=== PATIENT | female | born 1940 | race Caucasian/White ===

== ENCOUNTER 2017-10-05 16:33 | Inpatient (IN) | payer BC, MEDICARE ==
[~2017-10-05] VITALS: Ht 171.4 cm; Wt 155.0 kg
[2017-10-05] MEDS ORDERED: ALBUTEROL/IPRATROPIUM 2.5MG/0.5MG, 3 ML ONE (16:58)
[2017-10-05] MEDS ORDERED: SODIUM CHLORIDE FLUSH 10ML SYR IVF ONE (17:00)
[2017-10-05 17:19] LABS: BASOPHILS # (AUTO) 0.02 x10^3/uL (0-0.1); BASOPHILS % (AUTO) 0 % (0-1); EOSINOPHILS # (AUTO) 0.03 x10^3/uL (0-0.4); EOSINOPHILS % (AUTO) 1 % (1-7); LYMPHOCYTES # (AUTO) 1.52 x10^3/uL (1-3.4); LYMPHOCYTES % (AUTO) 27 % (22-44); MD NO; MEAN CORPUSCULAR HEMOGLOBIN 33.8 pg (27.0-34.8); MEAN CORPUSCULAR HGB CONC 32.4 g/dL (32.4-35.8); MEAN CORPUSCULAR VOLUME 104.4 fL (80-100); MEAN PLATELET VOLUME 7.6 fL (7.4-10.4); MONOCYTES % (AUTO) 14 % (2-9); NEUTROPHILS # (AUTO) 3.28 x10^3/uL (1.8-6.8); NEUTROPHILS % (AUTO) 58 % (42-75); PLATELET COUNT 198 x10^3/uL (130-400); RED BLOOD COUNT 3.36 x10^6/uL (3.82-5.3); RED CELL DISTRIBUTION WIDTH 18.1 % (9.6-15.2)
[2017-10-05 17:25] LABS: ALANINE AMINOTRANSFERASE 15 U/L (12-78); ALBUMIN 3.2 g/dL (3.4-5.0); ANION GAP 6 mmol/L (5-15); CALCIUM 9.4 mg/dL (8.5-10.1); CHLORIDE 99 mmol/L (98-107)
[2017-10-05 17:30] LABS: ALKALINE PHOSPHATASE 173 U/L (45-117); BILIRUBIN,TOTAL 1.4 mg/dL (0.2-1.0); CREATININE 0.99 mg/dL (0.55-1.02); TOTAL PROTEIN 7.2 g/dL (6.4-8.2); TROPONIN I 0.039 ng/mL (0.000-0.045)
[2017-10-05 17:33] LABS: D-DIMER 1.48 ug/mlFEU (0.00-0.52); INTERNATIONAL NORMALIZED RATIO 1.06 (0.93-1.1); PROTHROMBIN TIME 10.9 Seconds (9.6-11.5)
[2017-10-05] MEDS ORDERED: NITROGLYCERIN OINT 2%, 1GM TP ONE ×2 (18:00→18:18)
[2017-10-05] MEDS ORDERED: FUROSEMIDE 40 MG/4 ML IVPush ONE (18:00)
[2017-10-05] MEDS ORDERED: FUROSEMIDE 40 MG/4 ML ONE (18:18)
[2017-10-05] MEDS ORDERED: THIA100T67 PO (19:16)
[2017-10-05] MEDS ORDERED: FLUT1AER INH (19:16)
[2017-10-05] MEDS ORDERED: methotrexate (19:16)
[2017-10-05] MEDS ORDERED: AMLO5TAB4 PO (19:16)
[2017-10-05] MEDS ORDERED: OMEP-110 PO (19:16)
[2017-10-05] MEDS ORDERED: proventil (19:16)
[2017-10-05] MEDS ORDERED: FOLI-17 PO (19:16)
[2017-10-05] MEDS ORDERED: ETOD500T2 PO (19:16)
[2017-10-05] MEDS ORDERED: ATOR80TA PO (19:16)
[2017-10-05] MEDS ORDERED: THYR90TA12 PO (19:16)
[2017-10-05] MEDS ORDERED: DULO60CA7 PO (19:16)
[2017-10-05] MEDS ORDERED: ALLO100T30 PO (19:16)
[2017-10-05] MEDS ORDERED: MONT10TA6 PO (19:16)
[2017-10-05] MEDS ORDERED: ONDANSETRON 2MG/ML, 2ML IVPush PRN (19:30)
[2017-10-05] MEDS ORDERED: BISACODYL 10 MG SUPP PR PRN (19:30)
[2017-10-05] MEDS ORDERED: POLYETHYLENE GLYCOL 17 GM PACKET PO PRN (19:30)
[2017-10-05] MEDS ORDERED: OMNIPAQUE 350 MG/ML, 100ML BOTTLE ONE (20:38)
[2017-10-05 21:35] VITALS: BP 128/74
[2017-10-05] MEDS ORDERED: ALBUTEROL SULFATE 2.5 MG/3 ML NPPB PRN (22:00)
[2017-10-05] MEDS ORDERED: HEPARIN 5,000 UNITS/ML, 1ML SQ SCH (22:00)
[2017-10-05] MEDS ORDERED: ETODOLAC 200 MG CAPSULE PO SCH (22:30)
[2017-10-05 22:40] VITALS: BP 128/73
[2017-10-05] MEDS: SODIUM CHLORIDE FLUSH 10ML SYR IVF SCH (22:48)
[2017-10-05] MEDS: ATORVASTATIN 80 MG TABLET PO SCH (22:48)
[2017-10-05] MEDS: LISINOPRIL 10 MG TABLET PO SCH (22:49)
[2017-10-06 00:33] VITALS: BP 132/72
[2017-10-06] MEDS ORDERED: HEPARIN 5,000 UNITS/ML, 1ML IV PRN (01:30)
[2017-10-06] MEDS ORDERED: HEPARIN 5,000 UNITS/ML, 1ML IV ONE (01:30)
[2017-10-06] MEDS ORDERED: HEPARIN 25,000 UNITS/500ML PMX 500 ML IV PRN (01:30)
[2017-10-06 02:11] LABS: BASOPHILS # (AUTO) 0.02 x10^3/uL (0-0.1); BASOPHILS % (AUTO) 0 % (0-1); EOSINOPHILS # (AUTO) 0.03 x10^3/uL (0-0.4); EOSINOPHILS % (AUTO) 1 % (1-7); LYMPHOCYTES # (AUTO) 1.59 x10^3/uL (1-3.4); LYMPHOCYTES % (AUTO) 29 % (22-44); MD NO; MEAN CORPUSCULAR HEMOGLOBIN 33.7 pg (27.0-34.8); MEAN CORPUSCULAR HGB CONC 32.1 g/dL (32.4-35.8); MEAN CORPUSCULAR VOLUME 105.2 fL (80-100); MEAN PLATELET VOLUME 7.3 fL (7.4-10.4); MONOCYTES # (AUTO) 0.73 x10^3/uL (0.2-0.8); MONOCYTES % (AUTO) 14 % (2-9); NEUTROPHILS # (AUTO) 3.05 x10^3/uL (1.8-6.8); NEUTROPHILS % (AUTO) 56 % (42-75); PLATELET COUNT 188 x10^3/uL (130-400); RED BLOOD COUNT 3.18 x10^6/uL (3.82-5.3); RED CELL DISTRIBUTION WIDTH 18.8 % (9.6-15.2)
[2017-10-06 02:25] LABS: ALANINE AMINOTRANSFERASE 14 U/L (12-78); ANION GAP 5 mmol/L (5-15); CALCIUM 9.4 mg/dL (8.5-10.1); CHLORIDE 101 mmol/L (98-107); CREATININE 0.99 mg/dL (0.55-1.02)
[2017-10-06 02:27] LABS: ALKALINE PHOSPHATASE 156 U/L (45-117); BILIRUBIN,TOTAL 1.1 mg/dL (0.2-1.0); TOTAL PROTEIN 6.7 g/dL (6.4-8.2)
[2017-10-06 02:57] LABS: FREE T4 (FREE THYROXINE) 1.03 ng/dL (0.76-1.46); THYROID STIMULATING HORMONE 2.68 mIU/L (0.358-3.740)
[2017-10-06] MEDS ORDERED: MAGNESIUM SULFATE PMX 2GM/50ML 50 ML IV ONE (03:30)
[2017-10-06] MEDS: ALBUTEROL SULFATE 2.5 MG/3 ML NPPB SCH ×4 (06:55→19:56)
[2017-10-06] MEDS: FUROSEMIDE 40 MG/4 ML IV SCH ×2 (08:47→17:55)
[2017-10-06] MEDS: SODIUM CHLORIDE FLUSH 10ML SYR IVF SCH ×2 (08:47→20:39)
[2017-10-06] MEDS: OMEPRAZOLE 20 MG CAPSULE.DR PO SCH (08:48)
[2017-10-06] MEDS: THIAMINE 100MG TABLET PO SCH (08:48)
[2017-10-06] MEDS: ALLOPURINOL 300 MG TABLET PO SCH (08:48)
[2017-10-06] MEDS: LISINOPRIL 10 MG TABLET PO SCH ×2 (08:48→20:39)
[2017-10-06] MEDS: FOLIC ACID 1 MG TABLET PO SCH (08:48)
[2017-10-06] MEDS: SENNA/DOCUSATE TABLET PO SCH (08:48)
[2017-10-06 08:59] VITALS: BP 142/81
[2017-10-06] MEDS ORDERED: THYROID PORK HOMEMEDPO SCH (09:00)
[2017-10-06] MEDS ORDERED: DULOXETINE HCL 90 MG PO SCH (09:00)
[2017-10-06] MEDS: FLUTICASONE/VILANTEROL 100-25MCG/INH INH SCH (10:30)
[2017-10-06] MEDS: methylPREDNISolone SOD SUCC 125 MG/2 ML IVPush SCH ×2 (12:11→17:57)
[2017-10-06 13:53] VITALS: BP 154/89
[2017-10-06] MEDS: HEPARIN 5,000 UNITS/ML, 1ML SQ SCH (15:19)
[2017-10-06] MEDS: DULOXETINE 30 MG CAPSULE.DR PO SCH (17:55)
[2017-10-06] MEDS: POTASSIUM CHLORIDE 20 MEQ PACKET PO SCH (17:57)
[2017-10-06 19:18] VITALS: BP 136/79
[2017-10-06] MEDS: ATORVASTATIN 80 MG TABLET PO SCH (20:39)
[2017-10-06] MEDS: MONTELUKAST 10 MG TABLET PO SCH (20:39)
[2017-10-07] MEDS: HEPARIN 5,000 UNITS/ML, 1ML SQ SCH ×4 (00:24→22:51)
[2017-10-07] MEDS: methylPREDNISolone SOD SUCC 125 MG/2 ML IVPush SCH ×4 (00:24→18:02)
[2017-10-07 02:12] VITALS: BP_SYST 112; BP_SYST 120; BP_DIAS 63; BP_DIAS 76
[2017-10-07 05:25] LABS: CHLORIDE 97 mmol/L (98-107)
[2017-10-07 05:26] LABS: MEAN CORPUSCULAR HEMOGLOBIN 33.8 pg (27.0-34.8); MEAN CORPUSCULAR VOLUME 105.4 fL (80-100); PLATELET COUNT 187 x10^3/uL (130-400); RED BLOOD COUNT 3.34 x10^6/uL (3.82-5.3); RED CELL DISTRIBUTION WIDTH 18.2 % (9.6-15.2)
[2017-10-07 05:33] LABS: ALANINE AMINOTRANSFERASE 16 U/L (12-78); ALBUMIN 3.2 g/dL (3.4-5.0); ALKALINE PHOSPHATASE 165 U/L (45-117); ANION GAP 7 mmol/L (5-15); BILIRUBIN,TOTAL 0.7 mg/dL (0.2-1.0); CALCIUM 9.5 mg/dL (8.5-10.1); CREATININE 1.23 mg/dL (0.55-1.02); TOTAL PROTEIN 7.6 g/dL (6.4-8.2)
[2017-10-07 06:06] LABS: MD YES
[2017-10-07 06:11] LABS: BAND#(MANUAL) 0.03 x10^3/uL; BANDS%(MANUAL) 1 % (0-7); LYMPH#(MANUAL) 0.38 x10^3/uL (1-3.4); LYMPHS% (MANUAL) 15 % (22-44); MONOS#(MANUAL) 0.08 x10^3/uL (0.3-2.7); MONOS% (MANUAL) 3 % (2-9); SEG#(MANUAL) 2.03 x10^3/uL (1.8-6.8); SEGS% (MANUAL) 81 % (42-75)
[2017-10-07 06:12] LABS: ANISOCYTOSIS 1+; OVALOCYTES 1+
[2017-10-07 06:13] LABS: <PLATELET ESTIMATE> ADEQUATE; <PLT MORPHOLOGY> NORMAL PLT MORPH; STOMATOCYTES 1+
[2017-10-07] MEDS: ALBUTEROL SULFATE 2.5 MG/3 ML NPPB SCH ×4 (07:00→21:20)
[2017-10-07 07:58] VITALS: BP_SYST 168; BP_SYST 94; BP_DIAS 51; BP_DIAS 89
[2017-10-07] MEDS: FUROSEMIDE 40 MG/4 ML IV SCH ×2 (08:27→16:34)
[2017-10-07] MEDS: SODIUM CHLORIDE FLUSH 10ML SYR IVF SCH ×2 (08:28→20:46)
[2017-10-07] MEDS: FLUTICASONE/VILANTEROL 100-25MCG/INH INH SCH (08:30)
[2017-10-07] MEDS: THIAMINE 100MG TABLET PO SCH (08:53)
[2017-10-07] MEDS: ALLOPURINOL 300 MG TABLET PO SCH (08:53)
[2017-10-07] MEDS: FOLIC ACID 1 MG TABLET PO SCH (08:54)
[2017-10-07] MEDS: DULOXETINE 30 MG CAPSULE.DR PO SCH (08:54)
[2017-10-07] MEDS: OMEPRAZOLE 20 MG CAPSULE.DR PO SCH (08:54)
[2017-10-07] MEDS: LISINOPRIL 10 MG TABLET PO SCH ×2 (08:54→20:46)
[2017-10-07] MEDS: POTASSIUM CHLORIDE 20 MEQ PACKET PO SCH ×2 (08:54→16:35)
[2017-10-07] MEDS: SENNA/DOCUSATE TABLET PO SCH (08:54)
[2017-10-07] MEDS: LEVOTHYROXINE 100 MCG TABLET PO SCH (09:17)
[2017-10-07 12:47] VITALS: BP 133/73
[2017-10-07 19:16] VITALS: BP 126/76
[2017-10-07] MEDS: ATORVASTATIN 80 MG TABLET PO SCH (20:46)
[2017-10-07] MEDS: MONTELUKAST 10 MG TABLET PO SCH (20:47)
[2017-10-08] MEDS: methylPREDNISolone SOD SUCC 125 MG/2 ML IVPush SCH ×4 (00:35→21:55)
[2017-10-08] MEDS ORDERED: QUETIAPINE 25MG TABLET PO SCH (02:30)
[2017-10-08] MEDS ORDERED: HALOPERIDOL 5 MG/ML ONE (02:36)
[2017-10-08] MEDS: HALOPERIDOL 5 MG/ML IM PRN ×3 (02:40→03:56)
[2017-10-08 03:54] VITALS: BP_SYST 135; BP_SYST 163; BP_DIAS 76; BP_DIAS 85
[2017-10-08] MEDS: LEVOTHYROXINE 100 MCG TABLET PO SCH (05:34)
[2017-10-08] MEDS: HEPARIN 5,000 UNITS/ML, 1ML SQ SCH ×3 (05:35→23:30)
[2017-10-08 06:59] VITALS: BP 153/95
[2017-10-08] MEDS: ALBUTEROL SULFATE 2.5 MG/3 ML NPPB SCH ×4 (07:00→20:09)
[2017-10-08 08:18] LABS: MEAN CORPUSCULAR HEMOGLOBIN 32.5 pg (27.0-34.8); MEAN CORPUSCULAR HGB CONC 31.2 g/dL (32.4-35.8); MEAN CORPUSCULAR VOLUME 104.3 fL (80-100); MEAN PLATELET VOLUME 7.7 fL (7.4-10.4); PLATELET COUNT 196 x10^3/uL (130-400); RED BLOOD COUNT 3.48 x10^6/uL (3.82-5.3)
[2017-10-08 08:26] LABS: ANION GAP 3 mmol/L (5-15); CALCIUM 10.2 mg/dL (8.5-10.1); CHLORIDE 98 mmol/L (98-107); CREATININE 1.23 mg/dL (0.55-1.02)
[2017-10-08 08:40] LABS: BASOPHILS % (AUTO) 0 % (0-1); EOSINOPHILS % (AUTO) 0 % (1-7); LYMPHOCYTES # (AUTO) 0.48 x10^3/uL (1-3.4); LYMPHOCYTES % (AUTO) 10 % (22-44); MD SCAN; MONOCYTES # (AUTO) 0.15 x10^3/uL (0.2-0.8); MONOCYTES % (AUTO) 3 % (2-9); NEUTROPHILS # (AUTO) 4.23 x10^3/uL (1.8-6.8); NEUTROPHILS % (AUTO) 87 % (42-75)
[2017-10-08] MEDS: SENNA/DOCUSATE TABLET PO SCH (09:00)
[2017-10-08] MEDS: FUROSEMIDE 40 MG/4 ML IV SCH ×2 (09:25→18:01)
[2017-10-08] MEDS: POTASSIUM CHLORIDE 20 MEQ PACKET PO SCH ×2 (09:31→18:01)
[2017-10-08] MEDS: SODIUM CHLORIDE FLUSH 10ML SYR IVF SCH ×2 (09:31→21:55)
[2017-10-08] MEDS: LISINOPRIL 10 MG TABLET PO SCH ×2 (09:45→21:56)
[2017-10-08] MEDS: OMEPRAZOLE 20 MG CAPSULE.DR PO SCH (09:45)
[2017-10-08] MEDS: ALLOPURINOL 300 MG TABLET PO SCH (09:45)
[2017-10-08] MEDS: FOLIC ACID 1 MG TABLET PO SCH (09:45)
[2017-10-08] MEDS: THIAMINE 100MG TABLET PO SCH (09:45)
[2017-10-08] MEDS: DULOXETINE 30 MG CAPSULE.DR PO SCH (09:45)
[2017-10-08] MEDS: FLUTICASONE/VILANTEROL 100-25MCG/INH INH SCH (09:45)
[2017-10-08 14:56] VITALS: BP 121/76
[2017-10-08 19:07] VITALS: BP 127/88
[2017-10-08] MEDS: ATORVASTATIN 80 MG TABLET PO SCH (21:55)
[2017-10-08] MEDS: MONTELUKAST 10 MG TABLET PO SCH (21:55)
[2017-10-09] MEDS ORDERED: AMIODARONE 150 MG in DEXTROSE 5% 100 ML IV ONE (00:30)
[2017-10-09] MEDS ORDERED: VERAPAMIL 2.5 MG/ML, 2ML IVPush PRN (00:30)
[2017-10-09] MEDS ORDERED: FILTER 0.22 MICRON IV PRN (01:00)
[2017-10-09 01:15] VITALS: BP 124/64
[2017-10-09] MEDS: AMIODARONE 900 MG in DEXTROSE 5% 482 ML IV PRN (01:19)
[2017-10-09 01:52] VITALS: BP 147/66
[2017-10-09] MEDS: methylPREDNISolone SOD SUCC 125 MG/2 ML IVPush SCH ×4 (03:40→21:34)
[2017-10-09 03:46] LABS: BASOPHILS % (AUTO) 0 % (0-1); EOSINOPHILS % (AUTO) 0 % (1-7); LYMPHOCYTES # (AUTO) 0.34 x10^3/uL (1-3.4); LYMPHOCYTES % (AUTO) 7 % (22-44); MD NO; MEAN CORPUSCULAR HEMOGLOBIN 33.3 pg (27.0-34.8); MEAN CORPUSCULAR HGB CONC 31.6 g/dL (32.4-35.8); MEAN CORPUSCULAR VOLUME 105.2 fL (80-100); MEAN PLATELET VOLUME 7.7 fL (7.4-10.4); MONOCYTES # (AUTO) 0.34 x10^3/uL (0.2-0.8); MONOCYTES % (AUTO) 7 % (2-9); NEUTROPHILS # (AUTO) 4.05 x10^3/uL (1.8-6.8); NEUTROPHILS % (AUTO) 86 % (42-75); PLATELET COUNT 191 x10^3/uL (130-400); RED BLOOD COUNT 3.43 x10^6/uL (3.82-5.3); RED CELL DISTRIBUTION WIDTH 18.6 % (9.6-15.2)
[2017-10-09 03:57] LABS: CHLORIDE 96 mmol/L (98-107)
[2017-10-09 04:03] LABS: ALANINE AMINOTRANSFERASE 16 U/L (12-78); ALBUMIN 3.3 g/dL (3.4-5.0); ALKALINE PHOSPHATASE 122 U/L (45-117); ANION GAP 5 mmol/L (5-15); BILIRUBIN,TOTAL 0.6 mg/dL (0.2-1.0); CREATININE 1.27 mg/dL (0.55-1.02); TOTAL PROTEIN 7.2 g/dL (6.4-8.2)
[2017-10-09] MEDS: HEPARIN 5,000 UNITS/ML, 1ML SQ SCH ×3 (06:03→21:34)
[2017-10-09] MEDS: LEVOTHYROXINE 100 MCG TABLET PO SCH (06:03)
[2017-10-09 07:24] VITALS: BP 150/85
[2017-10-09] MEDS: ALBUTEROL SULFATE 2.5 MG/3 ML NPPB SCH ×4 (07:49→18:55)
[2017-10-09] MEDS: FLUTICASONE/VILANTEROL 100-25MCG/INH INH SCH (08:35)
[2017-10-09] MEDS: FOLIC ACID 1 MG TABLET PO SCH (08:35)
[2017-10-09] MEDS: LISINOPRIL 10 MG TABLET PO SCH ×2 (08:35→21:34)
[2017-10-09] MEDS: FUROSEMIDE 40 MG/4 ML IV SCH ×2 (08:35→16:07)
[2017-10-09] MEDS: POTASSIUM CHLORIDE 20 MEQ PACKET PO SCH ×2 (08:35→16:07)
[2017-10-09] MEDS: DULOXETINE 30 MG CAPSULE.DR PO SCH (08:35)
[2017-10-09] MEDS: OMEPRAZOLE 20 MG CAPSULE.DR PO SCH (08:35)
[2017-10-09] MEDS: SENNA/DOCUSATE TABLET PO SCH (08:35)
[2017-10-09] MEDS: ALLOPURINOL 300 MG TABLET PO SCH (08:35)
[2017-10-09] MEDS: THIAMINE 100MG TABLET PO SCH (08:35)
[2017-10-09] MEDS: SODIUM CHLORIDE FLUSH 10ML SYR IVF SCH ×2 (08:35→21:35)
[2017-10-09 15:13] VITALS: BP 146/78
[2017-10-09 20:37] VITALS: BP 142/66
[2017-10-09] MEDS ORDERED: HALOPERIDOL 5 MG TABLET PO PRN (21:30)
[2017-10-09] MEDS: ATORVASTATIN 80 MG TABLET PO SCH (21:34)
[2017-10-09] MEDS: MONTELUKAST 10 MG TABLET PO SCH (21:35)
[2017-10-10 00:36] VITALS: BP 122/63
[2017-10-10] MEDS: AMIODARONE 900 MG in DEXTROSE 5% 482 ML IV PRN (01:51)
[2017-10-10] MEDS: methylPREDNISolone SOD SUCC 125 MG/2 ML IVPush SCH ×4 (04:21→20:33)
[2017-10-10 05:05] LABS: ANION GAP 5 mmol/L (5-15); CALCIUM 9.9 mg/dL (8.5-10.1); CHLORIDE 94 mmol/L (98-107)
[2017-10-10 05:14] LABS: BASOPHILS % (AUTO) 0 % (0-1); EOSINOPHILS % (AUTO) 0 % (1-7); LYMPHOCYTES # (AUTO) 0.29 x10^3/uL (1-3.4); LYMPHOCYTES % (AUTO) 6 % (22-44); MD NO; MEAN CORPUSCULAR HEMOGLOBIN 33.4 pg (27.0-34.8); MEAN CORPUSCULAR VOLUME 104.5 fL (80-100); MEAN PLATELET VOLUME 8.1 fL (7.4-10.4); MONOCYTES # (AUTO) 0.26 x10^3/uL (0.2-0.8); MONOCYTES % (AUTO) 6 % (2-9); NEUTROPHILS # (AUTO) 4.14 x10^3/uL (1.8-6.8); NEUTROPHILS % (AUTO) 88 % (42-75); PLATELET COUNT 177 x10^3/uL (130-400); RED BLOOD COUNT 3.45 x10^6/uL (3.82-5.3)
[2017-10-10] MEDS: LEVOTHYROXINE 100 MCG TABLET PO SCH (06:00)
[2017-10-10] MEDS: ALBUTEROL SULFATE 2.5 MG/3 ML NPPB SCH ×4 (06:35→19:17)
[2017-10-10 07:51] VITALS: BP 154/82
[2017-10-10] MEDS: FUROSEMIDE 40 MG/4 ML IV SCH ×2 (08:26→16:13)
[2017-10-10] MEDS: LISINOPRIL 10 MG TABLET PO SCH ×2 (08:27→20:34)
[2017-10-10] MEDS: OMEPRAZOLE 20 MG CAPSULE.DR PO SCH (08:27)
[2017-10-10] MEDS: DULOXETINE 30 MG CAPSULE.DR PO SCH (08:27)
[2017-10-10] MEDS: ALLOPURINOL 300 MG TABLET PO SCH (08:27)
[2017-10-10] MEDS: HEPARIN 5,000 UNITS/ML, 1ML SQ SCH ×3 (08:27→22:04)
[2017-10-10] MEDS: FOLIC ACID 1 MG TABLET PO SCH (08:27)
[2017-10-10] MEDS: SENNA/DOCUSATE TABLET PO SCH (08:28)
[2017-10-10] MEDS: FLUTICASONE/VILANTEROL 100-25MCG/INH INH SCH (08:28)
[2017-10-10] MEDS: POTASSIUM CHLORIDE 20 MEQ PACKET PO SCH ×2 (08:28→17:20)
[2017-10-10] MEDS: THIAMINE 100MG TABLET PO SCH (08:28)
[2017-10-10] MEDS: SODIUM CHLORIDE FLUSH 10ML SYR IVF SCH ×2 (08:39→20:33)
[2017-10-10 15:38] VITALS: BP 171/94
[2017-10-10 17:39] VITALS: BP 152/95
[2017-10-10 19:51] VITALS: BP 143/97
[2017-10-10 19:54] VITALS: BP 102/65
[2017-10-10] MEDS: ATORVASTATIN 80 MG TABLET PO SCH (20:34)
[2017-10-10] MEDS: MONTELUKAST 10 MG TABLET PO SCH (20:34)
[2017-10-11 00:40] VITALS: BP 124/63
[2017-10-11] MEDS: methylPREDNISolone SOD SUCC 125 MG/2 ML IVPush SCH ×4 (04:08→22:32)
[2017-10-11 05:13] LABS: BASOPHILS % (AUTO) 0 % (0-1); EOSINOPHILS # (AUTO) 0.05 x10^3/uL (0-0.4); EOSINOPHILS % (AUTO) 1 % (1-7); LYMPHOCYTES # (AUTO) 0.27 x10^3/uL (1-3.4); LYMPHOCYTES % (AUTO) 6 % (22-44); MD NO; MEAN CORPUSCULAR HEMOGLOBIN 32.8 pg (27.0-34.8); MEAN CORPUSCULAR VOLUME 102.5 fL (80-100); MEAN PLATELET VOLUME 7.9 fL (7.4-10.4); MONOCYTES % (AUTO) 4 % (2-9); NEUTROPHILS # (AUTO) 4.08 x10^3/uL (1.8-6.8); NEUTROPHILS % (AUTO) 89 % (42-75); PLATELET COUNT 173 x10^3/uL (130-400); RED BLOOD COUNT 3.42 x10^6/uL (3.82-5.3); RED CELL DISTRIBUTION WIDTH 18.3 % (9.6-15.2)
[2017-10-11 05:21] LABS: ANION GAP 4 mmol/L (5-15); CALCIUM 9.7 mg/dL (8.5-10.1); CHLORIDE 94 mmol/L (98-107); CREATININE 1.29 mg/dL (0.55-1.02)
[2017-10-11 06:30] VITALS: BP 153/80
[2017-10-11] MEDS: ALBUTEROL SULFATE 2.5 MG/3 ML NPPB SCH ×4 (07:10→20:40)
[2017-10-11] MEDS: FUROSEMIDE 40 MG/4 ML IV SCH ×2 (08:18→17:07)
[2017-10-11] MEDS: HEPARIN 5,000 UNITS/ML, 1ML SQ SCH ×3 (08:19→22:33)
[2017-10-11] MEDS: LEVOTHYROXINE 100 MCG TABLET PO SCH (08:20)
[2017-10-11] MEDS: ALLOPURINOL 300 MG TABLET PO SCH (08:30)
[2017-10-11] MEDS: SENNA/DOCUSATE TABLET PO SCH (08:30)
[2017-10-11] MEDS: OMEPRAZOLE 20 MG CAPSULE.DR PO SCH (08:30)
[2017-10-11] MEDS: POTASSIUM CHLORIDE 20 MEQ PACKET PO SCH ×2 (08:31→17:08)
[2017-10-11] MEDS: FOLIC ACID 1 MG TABLET PO SCH (08:31)
[2017-10-11] MEDS: DULOXETINE 30 MG CAPSULE.DR PO SCH (08:31)
[2017-10-11] MEDS: THIAMINE 100MG TABLET PO SCH (08:31)
[2017-10-11] MEDS: LISINOPRIL 10 MG TABLET PO SCH ×2 (08:31→22:32)
[2017-10-11] MEDS: SODIUM CHLORIDE FLUSH 10ML SYR IVF SCH ×2 (09:00→22:33)
[2017-10-11] MEDS: FLUTICASONE/VILANTEROL 100-25MCG/INH INH SCH (09:00)
[2017-10-11 12:37] VITALS: BP 158/95
[2017-10-11] MEDS ORDERED: FILTER 0.22 MICRON FOR AMIODARONE IV PRN (16:30)
[2017-10-11] MEDS ORDERED: AMIODARONE 150 MG in DEXTROSE 5% 100 ML IV ONE (16:30)
[2017-10-11] MEDS: METOPROLOL TARTRATE 25 MG TABLET PO SCH ×2 (17:07→22:32)
[2017-10-11] MEDS ORDERED: AMIODARONE 50 MG/ML, 3ML IVPush PRN (19:00)
[2017-10-11] MEDS ORDERED: AMIODARONE 150 MG in DEXTROSE 5% 100 ML IV PRN (19:00)
[2017-10-11 19:53] VITALS: BP 122/72
[2017-10-11 22:30] VITALS: BP 166/84
[2017-10-11] MEDS: MONTELUKAST 10 MG TABLET PO SCH (22:31)
[2017-10-11] MEDS: ATORVASTATIN 80 MG TABLET PO SCH (22:32)
[2017-10-11] MEDS: AMIODARONE 200 MG TABLET PO SCH (22:32)
[2017-10-11 23:26] LABS: CULTURE INDICATED? YES; MICROSCOPIC INDICATED
[2017-10-11 23:33] VITALS: BP 144/80
[2017-10-12] MEDS: METOPROLOL TARTRATE 25 MG TABLET PO SCH ×3 (03:03→13:04)
[2017-10-12] MEDS: LEVOTHYROXINE 100 MCG TABLET PO SCH (04:52)
[2017-10-12] MEDS: methylPREDNISolone SOD SUCC 125 MG/2 ML IVPush SCH ×3 (04:53→16:21)
[2017-10-12 07:06] VITALS: BP 166/92
[2017-10-12] MEDS: ALBUTEROL SULFATE 2.5 MG/3 ML NPPB SCH ×3 (07:30→14:15)
[2017-10-12] MEDS: DULOXETINE 30 MG CAPSULE.DR PO SCH (08:07)
[2017-10-12] MEDS: SENNA/DOCUSATE TABLET PO SCH (08:07)
[2017-10-12] MEDS: LISINOPRIL 10 MG TABLET PO SCH (08:08)
[2017-10-12] MEDS: FOLIC ACID 1 MG TABLET PO SCH (08:08)
[2017-10-12] MEDS: ALLOPURINOL 300 MG TABLET PO SCH (08:08)
[2017-10-12] MEDS: POTASSIUM CHLORIDE 20 MEQ PACKET PO SCH ×2 (08:08→16:21)
[2017-10-12] MEDS: OMEPRAZOLE 20 MG CAPSULE.DR PO SCH (08:08)
[2017-10-12] MEDS: AMIODARONE 200 MG TABLET PO SCH (08:09)
[2017-10-12] MEDS: THIAMINE 100MG TABLET PO SCH (08:09)
[2017-10-12] MEDS: HEPARIN 5,000 UNITS/ML, 1ML SQ SCH ×2 (08:10→16:21)
[2017-10-12] MEDS: FUROSEMIDE 40 MG/4 ML IV SCH ×2 (08:10→16:20)
[2017-10-12] MEDS: FLUTICASONE/VILANTEROL 100-25MCG/INH INH SCH (08:11)
[2017-10-12] MEDS: SODIUM CHLORIDE FLUSH 10ML SYR IVF SCH (08:11)
[2017-10-12] MEDS ORDERED: APIXABAN 5 MG TABLET PO SCH (11:00)
[2017-10-12] MEDS ORDERED: METO25TA35 PO (13:34)
[2017-10-12] MEDS ORDERED: POTA20PA25 PO (13:34)
[2017-10-12] MEDS ORDERED: AMIO200T42 PO (13:34)
[2017-10-12] MEDS ORDERED: APIX5TAB PO (13:34)
[2017-10-12] MEDS ORDERED: LISI-167 PO (13:34)
[2017-10-12] MEDS ORDERED: FURO10VI37 IV (13:34)
[2017-10-12] MEDS ORDERED: METH125V16 IVPush (13:34)
[2017-10-12 14:18] VITALS: BP 194/95
[2017-10-12 16:31] VITALS: BP 154/74
== END 2017-10-12 17:49 | DRG 291 ==
LOC: ED 18:56 → EDIP 19:28 → 5SO 21:16
PROVIDERS: ADMIT Internal Medicine; ATTEND Internal Medicine
DX: I11.0 Hypertensive heart disease with heart failure (principal); J96.21 Acute and chronic respiratory failure with hypoxia; E44.1 Mild protein-calorie malnutrition; E87.2 Acidosis; I48.92 Unspecified atrial flutter; R17 Unspecified jaundice; Z99.11 Dependence on respirator [ventilator] status; D68.69 Other thrombophilia; I50.32 Chronic diastolic (congestive) heart failure; E66.01 Morbid (severe) obesity due to excess calories; F32.9 Major depressive disorder, single episode, unspecified; D53.9 Nutritional anemia, unspecified; E78.00 Pure hypercholesterolemia, unspecified; E11.9 Type 2 diabetes mellitus without complications; E03.9 Hypothyroidism, unspecified; E78.5 Hyperlipidemia, unspecified; I27.81 Cor pulmonale (chronic); I45.10 Unspecified right bundle-branch block; I48.91 Unspecified atrial fibrillation; M06.9 Rheumatoid arthritis, unspecified; M19.90 Unspecified osteoarthritis, unspecified site; I27.29 Other secondary pulmonary hypertension; I50.82 Biventricular heart failure; G47.33 Obstructive sleep apnea (adult) (pediatric); K59.00 Constipation, unspecified; J44.9 Chronic obstructive pulmonary disease, unspecified; Z86.718 Personal history of other venous thrombosis and embolism; Z87.891 Personal history of nicotine dependence; Z82.49 Family history of ischemic heart disease and other diseases of the circulatory system; Z99.81 Dependence on supplemental oxygen; Z88.1 Allergy status to other antibiotic agents; Z88.5 Allergy status to narcotic agent; Z88.0 Allergy status to penicillin
CPT/HCPCS: 36415; 36600; 70450; 71045; 71275; 80048; 80053; 81001; 82607; 82803; 82962; 83735; 83880; 84439; 84443; 84484; 85025; 85379; 85520; 85610; 85730; 87086; 93005; 93306; 94640; 96374; J1644; J1940; J7613; Q9967; J0282; J1630; J2930; J3475; J7060